=== PATIENT | male | born 1995 | race Caucasian/White ===

== ENCOUNTER 2017-02-12 00:13 | Inpatient (IN) | payer OTHER ==
[2017-02-12 00:50] LABS: % IMMATURE GRANULYOCYTES 0.7 % (0.0-1.1); ABSOLUTE IMMATURE GRANULOCYTES 0.09 10^3/uL (0.00-0.10); ADD DIFF? NO; ADD MORPH? NO; ADD SCAN? NO; ATYPICAL LYMPHOCYTE FLAG 0 (0-99); FRAGMENT RBC FLAG 0 (0-99); HEMATOCRIT 45.7 % (40.0-51.0); HEMOGLOBIN 15.3 g/dL (13.7-17.5); LEFT SHIFT FLG 0 (0-99); LIPEMIA HEMOLYSIS FLAG 80 (0-99); MEAN CELL HEMOGLOBIN 27.1 pg (27.9-34.1); MEAN CELL HEMOGLOBIN CONCENTR. 33.5 g/dL (32.4-36.7); MEAN PLATELET VOLUME 11.8 fL (8.7-11.7); PLATELET CLUMPS FLAG 0 (0-99); PLATELET COUNT 196 10^3/uL (150-400); RED BLOOD CELL COUNT 5.64 10^6/uL (4.40-6.38)
[2017-02-12 00:52] LABS: ANION GAP 15 mEq/L (8-16); CALCIUM 10.2 mg/dL (8.5-10.4); CARBON DIOXIDE 21 mEq/l (22-31); CHLORIDE 108 mEq/L (97-110); CREATININE 0.9 mg/dL (0.7-1.3); ETHANOL SERUM < 10 mg/dL (0-10); GLOMERULAR FILTRATION RATE > 60; GLUCOSE 132 mg/dL (70-100); POTASSIUM 3.9 mEq/L (3.5-5.2); SODIUM 144 mEq/L (134-144)
--- NOTE | 2017-02-12 01:14 | EDPHY ---
H & P Stated Complaint: BIB PD; AMS/substance abuse v psychiatric disorder - Personal History Current Tetanus/Diphtheria Vaccine: Unsure Current Tetanus Diphtheria and Acellular Pertussis (TDAP): No - Medical/Surgical History Hx Asthma: No Hx Chronic Respiratory Disease: No Hx Diabetes: No Hx Cardiac Disease: No Hx Renal Disease: No Hx Cirrhosis: No Hx Alcoholism: No Hx HIV/AIDS: No Hx Splenectomy or Spleen Trauma: No Other PMH: PMHx: denies. PSHx: R thumb, wisdom tooth extraction - Social History Smoking Status: Current some day smoker Time Seen by Provider: 02/12/17 00:20 HPI/ROS: Chief complaint: Altered mental status, on mental health hold History of present illness: This is a 21-year-old male brought to the emergency department by the police for a mental health evaluation. Patient was found by the police essentially wandering aimlessly. Patient appeared scared, paranoid and was speaking nonsensically at times. On my evaluation he is speaking nonsensically, mostly stating he is just scared. I am unable to get further information out of him. Review of systems: Unable to obtain secondary to patient's current mental status (Osei Salcedo) - Physical Exam Exam: General Appearance: Alert, appears scared. Eyes: Pupils equal and round no pallor or injection. ENT, Mouth: Mucous membranes moist. Respiratory: There are no retractions, lungs are clear to auscultation. Cardiovascular: Regular rate and rhythm. Gastrointestinal: Abdomen is soft and nontender, no masses, bowel sounds normal. Neurological: Alert. Cranial nerves 2-12 grossly intact. Strength and sensation does appear intact. Skin: Warm and dry, no rashes. Musculoskeletal: Neck is supple nontender. Extremities are symmetrical, full range of motion. Psychiatric: Patient appears very scared. (Osei Salcedo) Constitutional: Initial Vital Signs Heart Rate 128 H 02/12/17 00:22 Respiratory Rate 14 02/12/17 00:22 Blood Pressure 128/77 H 02/12/17 00:22 O2 Sat (%) 94 02/12/17 00:22 O2 Delivery Mode Room Air O2 (L/minute) 96 Allergies/Adverse Reactions: No Known Allergies Allergy (Unverified 02/12/17 00:22) Home Medications: Medication Instructions Recorded NK [No Known Home Meds] 02/12/17 Medical Decision Making ED Course/Re-evaluation: Patient seen under the supervision of my secondary supervising physician Dr. Angel Christianson. Patient is brought to the emergency room on a mental health hold. He is speaking nonsensically. He is medically evaluated and cleared for psychiatric evaluation. This is pending at time of dictation. Care of patient turned over to my attending physician Dr. Weiss at end of shift. (Osei Salcedo) 0200 care assumed by me from PAM salcedo. Patient is here psychotic. Is unclear as to whether this is acute psychotic break or worth it is substance induced. He will require mental health evaluation. 0700 patient signed out to Dr. Ward pending mental health evaluation. No issues caring for this patient overnight. (Angel Weiss) 0700: Patient signed out to me by Dr. Weiss at shift change. He is awaiting mental health evaluation. I examined him at 7:30 a.m.. He is standing in the doorway of his room asking for help. He appears to be attending to external stimuli. When questioned he tells me that he is hearing voices and seeing things. He is unable to tell me whether not he has a history of psychiatric illness. He cannot tell me whether not he has ever taken any prescription medications. He is mildly agitated. Ativan 2 mg p.o. ordered. Mental health evaluation was started but it was felt that he was unable to fully participate so the evaluation was aborted until he is a bit calmer. On examination he is awake and alert, heart has a regular rate and rhythm, lungs are clear to auscultation, he is moving all 4 extremities easily and equally. Pupils are equal. Extraocular movements are full. Facial expressions are symmetric. Patient refused to take any oral medications. He became more more agitated, requiring the use of restraints. He was given IM Haldol and Ativan. Mental health steel cutter, [place], spoke with his mother who states that he has no mental health history. 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 Mid day he awoke and was able to walk to the bathroom. However, before mental health evaluation could be performed, he fell back asleep. Family members have arrived in the emergency department. They are hopeful that when he awakens and is able to be evaluated, he will be able to return home. His care is transferred to Dr. Karl Gale at 3:00 p.m.. (Andria Ward) Differential Diagnosis: Included but not limited to substance abuse, schizophrenia, bipolar (Osei Salcedo) Other Provider: 1228AM: Patient accepted by Dr. Anna at [address] [place] [address] psychiatric facility. Emtala form filled out. Appropriate transfer will be set up. ( Guillermo Lima) Care received by me at 3:00 p.m.. Patient is currently sleeping. We are awaiting psychiatric evaluation. He was sedated earlier today with held on Ativan. His parents have been here wish to take him home but he will require evaluation by mental health 1st. He was very combative anxious and appears to be hearing voices and responding to external stimuli on arrival. He admits to LSD 8 months ago to paramedics but denies anything recently. His urine tox is negative although LSD would not show 8:40 p.m. mental health has evaluated the patient. They feel that he is acutely psychotic. They will begin searching for placement. He remains on an M1 hold. 11:00 p.m. patient care transferred to Dr. Guillermo Lima. We continue to await placement. (Karl Gale) - Data Points Laboratory Results: Laboratory Results 02/12/17 00:30 02/12/17 00:30 Medications Given: Discontinued Medications Haloperidol Lactate (Haldol Injection) 10 mg IM Q6HRS PRN PRN Reason: Agitation Stop: 08/11/17 08:20 Last Admin: 02/12/17 07:45 Dose: 10 mg Lorazepam (Ativan) 2 mg PO EDNOW ONE Stop: 02/12/17 07:25 Last Admin: 02/12/17 07:45 Dose: 2 mg Departure - Departure Disposition: [facility] IP Clinical Impression: Acute psychosis Condition: Fair
[2017-02-12] MEDS ORDERED: LORazepam 1 MG TAB PO ONE (07:24)
[2017-02-12] MEDS ORDERED: LORazepam 1 MG TAB ONE (07:24)
[2017-02-12] MEDS ORDERED: LORazepam 2 MG/ML INJ ONE (07:31)
[2017-02-12] MEDS ORDERED: HALOPERIDOL LACT 5 MG/ML INJ ONE (07:40)
[2017-02-12] MEDS ORDERED: HALOPERIDOL LACT 5 MG/ML INJ IM PRN (08:21)
[2017-02-13] MEDS ORDERED: ACETAMINOPHEN 325 MG TAB PO PRN (00:45)
[2017-02-13] MEDS ORDERED: MAG HYDROX/AL HYDROX/SIMETH 30 ML UDCUP PO PRN (00:45)
[2017-02-13] MEDS ORDERED: NICOTINE POLACRILEX 2 MG GUM B PRN (00:45)
[2017-02-13] MEDS ORDERED: MAGNESIUM HYDROXIDE 30 ML UDCUP PO PRN (00:45)
[2017-02-13] MEDS ORDERED: OLANZapine DISINTEGR 10 MG TAB PO PRN (00:45)
[2017-02-13] MEDS ORDERED: LORazepam 0.5 MG TAB PO PRN (00:45)
[2017-02-13 01:42] VITALS: RESP 15; TEMP 97.5; O2SAT 97
--- NOTE | 2017-02-13 08:19 | PDGENHP ---
History and Physical History and Physical: HISTORY AND PHYSICAL CC: patient brought into the ER by police after being found confused and agitated HISTORY: this patient was noted to be confused and scared wandering aimlessly outdoors and monitoring nonsensical ideas. Police had been called and he was brought into the emergency room. On arrival to the ER he was noted to be paranoid and frightened, hallucinating with auditory and visual hallucinations, speaking nonsensically. He was interacting with staff. He did deny use of any drugs other than modest amounts of marijuana. He denies use of any synthetic THC like chemicals. He did admit to a remote history of LSD use but none for years. As he was moderately agitated in the ER he did require medication to protect him any refer received a dose of Ativan and a dose of Haldol. Evaluation in the ER did not show any specific signs of acute medical illness other than psychiatric. He was seen by the mental health team he thought he was having acute psychiatric disorder. He was transferred to the behavior health unit which is where I am evaluating him this morning. This morning he says he is feeling better. Had he is now groggy but arousable, much better oriented, no longer hallucinating. He denies any kind of headache, seizures, nausea, fever symptoms or other symptoms of acute illness physically. Says he has never had an episode like last night's episode. Again for me he denies use of LSD, synthetic marijuana mimics, meth, narcotics, or other significant street drugs. ROS: A comprehensive 10 system review revealed no other significant findings PAST MEDICAL HISTORY: He denies any significant medical history FAMILY MEDICAL HISTORY: he states his relatives are all healthy SOCIAL HISTORY: has a very supportive family Denies use of alcohol or tobacco MEDICATIONS: no home medicines and no medicine allergies PHYSICAL EXAMINATION: Vital Signs:Normal without fever Examination: General: somewhat somnolent but easily aroused from a nap and stays awake for examination, oriented, good mentation Neurologic: No longer paranoid or scared, no longer hallucinating, no tremor, normal attention span, normal speech/language, normal informatics analyst, no focal weakness Skin: warm, dry, good color, no rash HEENT: normal Neck: no mass or jvd Resps: relaxed Lungs: clear breath sounds Heart: regular, no murmur Abdomen: soft, nondistended, nontender, +BS, no mass no signs of injury anywhere No Bleeding or bruising LABORATORY DATA: Labs done in the ER were normal including CBC and Chem panel ASSESSMENT: -ACUTE PSYCHOTIC EPISODE, PRIMARY PSYCHOSIS VS INGESTION -PAST HX OF LSD USE BUT DENIES RECENT USE -CURRENT ONGOING MARIJUANA USE BUT DENIES ANY USE OF SYNTHETICS PLANS: At this time seems to be improved since presentation, either spontaneously or due to Haldol. I did peer counselor and should receive further counseling regarding the hazards of use of marijuana and specifically synthetic marijuana like derivatives and LSD. No specific recommendation for further medical workup at present. Call if other medical issues.
[2017-02-13] MEDS ORDERED: RISPERIDONE 1 MG ODT TAB SL PRN (13:17)
--- NOTE | 2017-02-13 14:24 | BAPA ---
[f rep st] ADMISSION PSYCHIATRIC ASSESSMENT DATE OF SERVICE: 02/13/2017 REASON FOR ADMISSION: Patient is a 21-year-old male with no previous psychiatric history. He was b rought in by the [facility] police, after having been found agitated and wanderin g around campus. He appeared to be afraid and ran away from them and stated that he was being pursu ed and people were trying to kill him. They eventually were able to detain him and brought him in f or evaluation. In the emergency department, he was disoriented and appeared overwhelmed. He stated he was afraid a nd that he believed, "The world was against him and evil." He stated that he could look into people 's eye and see their soul and was afraid of different auras. He stated to the [facility] worker that he gonzalez d had a "spiritual revelation" that told him he was in danger. He also told the [facility] roundhouse worker that he needed fresh air and thought he was being poisoned in the emergency department. After this, he b ecame extremely agitated and attempted to leave the hospital and required restraint and emergency me dications. After that, he was calmer but groggy and remained disorganized. He could not give a leoncio sonable history, and it was unclear whether this was a substance-induced phenomenon or evidence of a first-break schizophrenia. Because of the ongoing psychotic symptoms, he was placed on an M1 hold and admitted for further eval uation. It is of note that his parents were present and were fairly adamant that he not be admitted and that they take him home with them. I felt, given the entire circumstances and his ongoing acut e psychosis, this would not be responsible, especially given his propensity to run away and he could inadvertently place himself in harm's way. Today, I was able to evaluate the patient this morning and he is more lucid. He is able to answer m ost questions with brief answers and states that he does not remember fully what happened yesterday. He admits to smoking marijuana but denies any other drug use. He states that he uses marijuana on a daily basis. 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 He notes no other stressors. He states that h is sleep had been stable, though he has had less sleep than normal due to working on his projects. He denies any perceptual disturbances at this time and states that he has a general sense of alarm o r trepidation, but denies being specifically afraid of anything. He specifically denies the stateme nts that some unseen force or collaboration of individuals is trying to harm him or kill him. PAST PSYCHIATRIC HISTORY: Noncontributory for any history of previous psychiatric treatment. He gonzalez s had no previous hospitalizations or medications. ALLERGIES: No known medical allergies. CURRENT MEDICATIONS: None. PAST MEDICAL HISTORY: Noncontributory. 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. His parents live in [place]. He is single, with no dependents. He has 2 younger broth ers, to whom he states he is close. He denies any other stresses at this time. He is making adequa te academic progress. SUBSTANCE ABUSE HISTORY: Patient states he uses marijuana on a daily basis and has taken some LSD i n the past but the last time was approximately 3 months ago. FAMILY HISTORY: Noncontributory for any history of psychiatric illness or substance abuse issues. ADMISSION LABORATORY: CBC shows the white count up at 13.44 with the neutrophil percentage up at 79 .7. MCV is low at 81. H and H are normal. Serum chemistries are normal, with the exception of a nonfasting glucose of 132. A urine drug screen is positive for marijuana. MENTAL STATUS EXAMINATION: Reveals a healthy-appearing male with long, curly hair. He is otherwise well groomed and appropriately dressed. He interacts generally well with the examiner, though he i s quite guarded and does sit with a fairly closed body posture, maintaining intermittent eye contact . His affect is blunted, stable, and appropriate. His mood is described as "okay." His thought pr ocess is linear for brief answers, though he does seem to be at times internally preoccupied. He st ands up abruptly and walks around the small office on several occasions, and it is unclear what the prompting for this is. His thought content reveals no overt psychosis, though he does state that he feels "confused." He is alert and oriented to person, place, time and situation, and his sensorium is clear. His attention and concentration are adequate to the examination, with the exception of w hat appears to be the intrusion of some internal processes. His intellect appears to be above avera ge, as evidenced by his educational history, fund of knowledge, and vocabulary. He denies any thoug hts of suicide, homicide, or violence. IMPRESSION: Acute psychotic disorder, possible substance-induced psychosis. Academic stress. Patient is a 21-year-old male with no previous psychiatric history, who presents to the ER with acut e psychosis. This could certainly be related to his cannabis use or could be an acute process relat ed to stress. He is much better than yesterday already, and this could possibly be due to the admin istration of the haloperidol in the emergency department. He is still somewhat disconnected and int ernally focused and could have some ongoing active psychotic symptoms. He is on an M1 hold, and we will keep him certainly through the 72 hours for further evaluation. His parents are reportedly sti ll adamant about his being discharged, but I do not feel safe, given the acuity of his psychosis and the need for a better understanding of the underlying process. PLAN: 1. Admit to the behavioral health services inpatient unit on an M1 hold. 2. Observe in the milieu and perform serial clinical interviews to better understand his acute cond ition and possible underlying etiology of his symptoms. 3. Provide p.r.n. Risperdal at this time and may move to scheduled if his symptoms are more persist ent. The risks, benefits, and alternatives of this were discussed with the patient, and he agrees t o proceed. 4. Estimated length of stay is 3-5 days. /[id number]/MODL
[2017-02-14 01:47] VITALS: BP 138/72; PULSE 90
--- NOTE | 2017-02-16 14:24 | BDS ---
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 He was found on campus wandering around acting frightened and confused, and was placed on an M1 hold and brought in for evaluation. In the emergency department, he remained disorganized, c onfused, erratic, and required restraints, and emergency medications. He was admitted for further e valuation, as he was unable to give much useful history. A full description of the events preceding admission can be found in his admission history dated . ADMITTING DIAGNOSES: Acute psychotic disorder, possible substance-induced psychosis and academic st ress. Admission physical examination performed by Dr. Cameron Kellogg showed no acute physical findings. ADMISSION LABORATORY: CBC showed a white count up at 13.44, neutrophil percentage was up at 79.7, s lisa chemistries showed a nonfasting glucose up at 132. Urine drug screen is positive for marijuana . HOSPITAL COURSE: Patient was admitted to the behavior health services inpatient unit on an M1 hold. He was calm, cooperative and interactive on the 1st morning of his admission, and was not displayi ng the level of agitation he did the prior evening. He struggled to interact at times and displayed a kind of disorganized thinking. He was able to tell me a story, however, of having smoked marijua na, and then felt overwhelmed and afraid. He had some objectivity to the events stating that it "se emed like a dream." He stated, however, that he did not understand what was going on and that, "I s till felt in some ways unsafe." The patient was engaged in serial clinical interviews and observation on the unit, and was noted to improve greatly over the 1st 24 hours. On the second full day of admission, he seemed to have clear ed and was no longer disorganized, able to answer questions normally, and was having no perceptual d isturbances. His paranoia had also resolved. P.r.n. Risperdal was prescribed, though he did not re ceive any doses of this during his stay. The patient's parents were seemingly solely focused on ext ricating him from the hospital and were quite pressured in their demanding that he first not even be admitted, and then to be discharged immediately. This was delayed on the first day of admission du e to his disorganization, but I felt on the second day that he was able to be safely discharged, and so he was allowed to leave. CONDITION AT DISCHARGE: Stable. His affect was euthymic, stable, and appropriate, and he was exhib iting no psychotic symptoms. DISCHARGE MEDICATIONS: None. FOLLOWUP: [facility], as scheduled previously. LEGAL COURSE: Patient was discharged at the expiration of his M1 hold. /[id number]/MODL
== END 2017-02-14 14:10 | disposition home or self-care (01) | DRG 885 ==
LOC: BBEH 02-13 00:10
PROVIDERS: ADMIT Psychiatry & Neurology Psychiatry; ATTEND Psychiatry & Neurology Psychiatry
DX: F23 Brief psychotic disorder (principal); F12.90 Cannabis use, unspecified, uncomplicated; F17.210 Nicotine dependence, cigarettes, uncomplicated
CPT/HCPCS: 80305; G0480; J2060